=== PATIENT | male | born 1945 | race Asian ===

== ENCOUNTER 2016-10-14 11:25 | Day surgery (SDC) | payer BC ==
[~2016-10-14 11:25] MED LIST: ceFAZolin 2 GM/DEXTROSE 100 ML IV ONE
[2016-10-14] MEDS ORDERED: CEFAZOLIN 2 GM/DEXTROSE/100 ML BAG IV ONE (13:25)
[2016-10-14] MEDS ORDERED: SKIN ADHESIVE (DERMABOND) 1 EACH TP ONE (13:36)
[2016-10-14] MEDS ORDERED: BUPIVACAINE 0.5% 30 ML SDV ONE ×2 (13:37→14:58)
[2016-10-14] MEDS ORDERED: MIDAZOLAM 2 MG/2 ML VIAL ONE (13:48)
[2016-10-14] MEDS ORDERED: fentaNYL 100 MCG/2 ML INJ ONE ×2 (14:06→14:53)
[2016-10-14] MEDS ORDERED: PROPOFOL 200 MG/20 ML VIAL ONE (14:06)
[2016-10-14] MEDS ORDERED: PROPRANOLOL HCL 1 MG/ML VIAL ONE (14:13)
[2016-10-14] MEDS ORDERED: PROPOFOL/EMULSION 500 MG/50 ML BOTTLE IV ONE ×2 (14:14→15:07)
[2016-10-14] MEDS ORDERED: LIDOCAINE 1% 30 ML SDV ONE (14:27)
--- NOTE | 2016-10-14 16:10 | DX ---
Portable Chest 15:52, 2 views History: Port placement, tongue mass Comparison: None Findings: A right chest wall implanted port is present with tip of its catheter in the superior vena cava. There is no pneumothorax. There are no pulmonary nodules or mass lesions. There is no obvious h ilar or mediastinal adenopathy. Impression: Excellent port placement without pneumothorax.
--- NOTE | 2016-10-14 18:12 | DX ---
Intraoperative Fluoroscopy of the Chest Clinical History: 70-year-old male with a history of squamous cell carcinoma, presenting for port bear cement. Findings: Dr. Emilie Lira used 12.5 seconds of fluoroscopy time (exposure dose of 3.07 mGy), and 2 sp ot matrix intraoperative images were acquired identifying a right IJ central venous catheter Metaport which extends to the level of the SVC (although imaging below this level was not provided). Impression: Intraoperative fluoroscopy during an ongoing right IJ central venous catheter Mediport pl acement.
--- NOTE | 2016-10-14 21:53 | GCON ---
[f rep st] CONSULTATION GASTROENTEROLOGY OUTPATIENT CONSULTATION. DATE OF CONSULTATION: 10/14/2016 REFERRING PHYSICIAN: Emilie Lira MD REASON FOR CONSULTATION: Feeding difficulties. HISTORY OF PRESENT ILLNESS: The patient is a 70-year-old male whom I am asked to see in consultation for a chief complaint of feeding difficulties. 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 He is scheduled to begin chemo/radiotherapy 10/20. With the above, he has minimal pain complaints and no reported functional loss with regard to the neck, jaw, etc. It is anticipated with his chemo and radiation therapy that he will have feeding difficulties. PAST MEDICAL HISTORY: 1. As above. 2. Asthma. 3. Osteoarthritis. 4. Hypertension. 5. Otherwise, noncontributory. MEDICATIONS: Outpatient medications include metoprolol and spironolactone. SOCIAL HISTORY: Negative for alcohol abuse. FAMILY HISTORY: Negative for similar swallowing troubles. REVIEW OF SYSTEMS: Positive pertinent review of systems as per my HPI. Otherwise, his review of systems is negative making a total of 10 systems. ALLERGIES: No known drug allergies. PHYSICAL EXAMINATION: Physical examination could not be performed, as the patient is in the operating room, sterile and draped. LABORATORIES: Include a normal CBC on 10/03 as well as a normal basic metabolic panel. ASSESSMENT: Feeding difficulties. It is anticipated that this will occur transiently as a result of chemo and radiation therapy for his base of the tongue cancer. Therefore, placement of a gastrostomy tube is quite reasonable. PLAN: I will proceed with an intraoperative upper endoscopy to assist Dr. Lira in the placement of the above. Thank you for allowing me to help in the care of this patient. /[id number]/MODL MTDD
--- NOTE | 2016-10-14 22:33 | GPN ---
[f rep st] PROCEDURE NOTE DATE OF PROCEDURE: 10/14/2016 PRE-PROCEDURE DIAGNOSIS: Feeding difficulties. POSTPROCEDURE DIAGNOSIS: As below. PREMEDICATION: As per Anesthesia. COMPLICATIONS: None. FINDINGS: The patient was in the prone position, just having finished having a port placed by Dr. Emilie Lira for chemotherapy. The upper endoscope was placed under direct visualization and advanced. The esophagus and duodenum were normal. The stomach was normal, except for some atrophic gastritis. I used the upper endoscope to find an appropriate site for Dr. Lira to use a finer needle, and then insert a gastrostomy tube. IMPRESSION: Upper endoscopy, as above. PLAN: As per Dr. Lira. Thank you for allowing me to help in the care of this patient. /[id number]/MODL MTDD
--- NOTE | 2016-10-15 06:54 | GOP ---
[f rep st] OPERATIVE REPORT DATE OF OPERATION: 10/14/2016 SURGEON: Emilie Lira MD NEUROSURGEON: Emilie Lira MD. ANESTHESIOLOGIST: Zhao Holman MD PREOPERATIVE DIAGNOSIS: Base of tongue cancer. POSTOPERATIVE DIAGNOSIS: Base of tongue cancer. PROCEDURE PERFORMED: Right ultrasound-guided PowerPort placement. FINDINGS: Tip in the SVC. SPECIMENS: None. ESTIMATED BLOOD LOSS: 10 cc. INDICATIONS: The patient is a 70-year-old man who was diagnosed with base of tongue cancer. He requ ires a port for chemotherapy. DESCRIPTION OF PROCEDURE: The patient was brought into the operating room, placed supine on the tabl e, and general anesthesia was administered. His bilateral neck and chest were prepped and draped in the usual sterile fashion. I infiltrated all sites with 0.5% Marcaine prior to making incisions. I tried to access the left subclavian vein two times without return of blood flow. I then turned my at tention to the left neck. I performed ultrasound guidance and saw the internal jugular vein. I acce ssed this with a needle with dark return of blood flow; however, I could not get the wire to thread. I removed the needle. I re-ultrasounded his neck and examined the area. The carotid artery was vis ible. The jugular vein appeared to be between several large lymph nodes and it was difficult to acce ss. I then made the decision to perform an ultrasound of the right side. On the right side, the jug ular vein was isolated and fully compressible. I accessed this easily on the first attempt with dark return of blood flow and the wire threaded easily. I removed the needle. I created a pocket to acc ommodate the port in the right chest. I tunneled this up to the insertion site. Under fluoroscopy, I measured the catheter and cut it to size. Using the Seldinger technique, I placed a dilator and sh eath over the wire. I removed the dilator and the wire. I threaded the catheter through the sheath and peeled away the sheath. Placement was confirmed with fluoroscopy. I performed slight manipulati on of the neck in order to achieve a gentle curve of the catheter. The port withdrew blood easily an d was flushed with heparin. The pocket was closed with 3-0 Vicryl followed by 4-0 Monocryl. Dermabo nd applied. /[id number]/MODL
--- NOTE | 2016-10-15 07:09 | GOP ---
[f rep st] OPERATIVE REPORT DATE OF OPERATION: 10/14/2016 SURGEON: Emilie Lira MD ANESTHESIA: Monitored anesthesia care with IV sedation. ANESTHESIOLOGIST: Dr. Zhao Holman. PREOPERATIVE DIAGNOSIS: Base of tongue cancer. POSTOPERATIVE DIAGNOSIS: Base of tongue cancer. PROCEDURE PERFORMED: Percutaneous gastrostomy tube placement. FINDINGS: 20-Belizean PEG tube with bumper at skin at 3 cm. DESCRIPTION OF PROCEDURE: The patient was already in the operating room. I prepped his abdomen. I asked my colleague Arpan Jackson to perform the EGD portion. Please see his operative note for details on the EGD. Once the stomach was insufflated I was able to select a portion of the stomach where the gastrostomy tube would be located. I infiltrated the area with lidocaine. I used the finder needle and could see an indentation on the stomach. I then used the needle to access the stomach percutaneously. I threaded the wire which was then grasped by Dr. Jackson. The PEG tube was placed around the wire. I made a small mary ann in the skin and pulled the PEG tube out through the skin. The adapters were placed. It measured 2.5 cm at the skin. The stomach was desufflated. He tolerated the procedure well. /[id number]/MODL MTDD
== END 2016-10-14 16:55 | disposition home or self-care (01) ==
LOC: FSGY 11:25
PROVIDERS: ATTEND Surgery
PROC: 0JH60WZ Insertion of Totally Implantable Vascular Access Device into Chest Subcutaneous Tissue and Fascia, Open Approach (ICD-10-PCS; principal; 2016-10-14 13:00)
PROC: 0DH63UZ Insertion of Feeding Device into Stomach, Percutaneous Approach (ICD-10-PCS; principal; 2016-10-14 13:00)
PROC: 02HV33Z Insertion of Infusion Device into Superior Vena Cava, Percutaneous Approach (ICD-10-PCS; principal; 2016-10-14 13:00)
DX: C10.9 Malignant neoplasm of oropharynx, unspecified (principal); R63.3 Feeding difficulties; I25.10 Atherosclerotic heart disease of native coronary artery without angina pectoris; I10 Essential (primary) hypertension; I25.5 Ischemic cardiomyopathy; J45.909 Unspecified asthma, uncomplicated
CPT/HCPCS: 36561; 49440; 71010; 76001; C1769; C1788; J0690; J1800; J2250; J2704; J3010

== ENCOUNTER → 2016-12-08 | Day surgery (SDC) | payer BC, OTHER ==
[~2016-12-08] MED LIST changes: +IOPAMIDOL (ISOVUE-300) 100 ML BTL IV ONE; -ceFAZolin 2 GM/DEXTROSE 100 ML IV ONE
== END | disposition home or self-care (01) ==
LOC: FIMAGING 11:34
PROVIDERS: ATTEND Internal Medicine Hematology & Oncology
PROC: BD12ZZZ Fluoroscopy of Stomach (ICD-10-PCS; principal; 2016-12-08)
DX: Z43.1 Encounter for attention to gastrostomy (principal)
CPT/HCPCS: 49452; C1769; Q9967

== ENCOUNTER 2016-12-09 11:49 | Day surgery (SDC) | payer BC, OTHER ==
[2016-12-09] MEDS ORDERED: NS 1,000 ML IV SCH (14:30)
[2016-12-09] MEDS ORDERED: LIDOCAINE 2% JELLY 20 ML (UROJECT) ONE (14:52)
[2016-12-09] MEDS ORDERED: MIDAZOLAM 2 MG/2 ML VIAL ONE (14:55)
[2016-12-09] MEDS ORDERED: fentaNYL 100 MCG/2 ML INJ ONE (14:56)
[2016-12-09] MEDS ORDERED: ONDANSETRON 4 MG/2 ML VIAL IVP PRN (15:55)
[2016-12-09] MEDS ORDERED: LIDOCAINE 1% 30 ML SDV ONE (16:03)
[2016-12-09] MEDS ORDERED: IOPAMIDOL (ISOVUE-300) 100 ML BTL IV ONE (16:04)
== END 2016-12-09 16:45 | disposition home or self-care (01) ==
LOC: FIMAGING 11:49
PROVIDERS: ATTEND Radiology Diagnostic Radiology
PROC: 0DW03UZ Revision of Feeding Device in Upper Intestinal Tract, Percutaneous Approach (ICD-10-PCS; principal; 2016-12-09 15:30)
DX: Z43.1 Encounter for attention to gastrostomy (principal); C14.0 Malignant neoplasm of pharynx, unspecified
CPT/HCPCS: J2250; J3010; Q9967

== ENCOUNTER 2016-12-10 08:57 | Observation (INO) | payer BC, OTHER ==
--- NOTE | 2016-12-10 09:03 | EDPHY ---
HPI/HX/ROS/PE/MDM Narrative: CHIEF COMPLAINT: PEG tube displaced HPI: This patient is a 70 year old man, with a history of tongue cancer and PEG tube placement, presenting with displacement of his PEG tube. He had a new PEG tube placed yesterday. He states it fell out during the night and he tried to replaced the tube, however it is not functioning today. He denies abdominal pain or fever. He has no other complaints. REVIEW OF SYSTEMS: Aside from elements discussed in the HPI, a comprehensive 10-point review of systems was reviewed and is negative. PMH: Tongue cancer with radiation treatment SOCIAL HISTORY: Followed by Dr. Jackson and Dr. Lira PHYSICAL EXAM: General:Patient is alert, in no acute distress. ENT:Eyes are normal to inspection. ENT inspection normal. Neck: Scarring from radiation noted. Diffuse swelling. Respiratory:No respiratory distress. Breath sounds normal bilaterally. Cardiovascular: Regular rate and rhythm. Strong peripheral pulses. Normal cap refill. Abdomen:The abdomen is nontender to palpation. PEG tube has been replaced in site but appears abormal. There are no peritoneal signs. There are normal bowel sounds. Back: Normal to inspection. No tenderness to palpation. Skin: Normal color. No rash. Warm and dry. Extremities: Normal appearance. Full range of motion. Neuro: Oriented x3. Normal motor function. Normal sensory function. ED Course: [address] Griffin, interventional radiology, about replacing the PEG tube. She tells me that the patient has complicated anatomy and would be best served by surgery for replacement of the PEG tube. Dr. Lira paged. [address] Lira. She requests imaging study and will review the results. Per Krystian, G-tube fluoroscopy shows the G-tube is not in place. Dr. Lira informed. 1120 Dr. Lira evaluated the patient. She will replace the G-tube endoscopically /in the OR. She requests hospitalist admission. 1145 I consulted with the hospitalist service. Dr. Fofana accepts admission. IMAGING Gastrostomy tube check under fluoroscopic guidance Impression: Gastrostomy tube only 2 cm into the patient with contrast not entering the abdomen or peritoneal cavity. Recommend repositioning gastrostomy tube. General Time Seen by Provider: 12/10/16 09:03 Initial Vital Signs: Initial Vital Signs Temperature (C) 36.7 C 12/10/16 09:00 Heart Rate 96 12/10/16 09:00 Respiratory Rate 18 12/10/16 09:00 Blood Pressure 113/61 12/10/16 09:00 O2 Sat (%) 97 12/10/16 09:00 O2 Delivery Mode Room Air Allergies/Adverse Reactions: No Known Allergies Allergy (Verified 12/10/16 08:59) Home Medications: Medication Instructions Recorded Metoprolol Tartrate [Lopressor 25 25 mg PO BID 10/13/16 mg (*)] Spironolactone [Aldactone 25 MG 25 mg PO DAILY 10/13/16 (*)] Atorvastatin Calcium [Lipitor 40 40 mg PO DAILY 12/09/16 mg (*)] Losartan Potassium [Cozaar 25 mg 25 mg PO DAILY 12/09/16 (*)] Sennosides/Docusate Sodium 1 - 2 each PO BID PRN 12/10/16 [Senna-Docusate Sodium Tablet] Departure - Departure Disposition: [facility] Inpatient Acute Clinical Impression: PEG tube malfunction Condition: Fair Report Scribed for: Frankie Gerardo Report Scribed by: Emilie Hawthorne Date of Report: 12/10/16 Time of Report: 09:03 Physician Review and Approval Statement: Portions of this note were transcribed by an ED scribe. I personally performed the history, physical exam, and medical decision making; and confirm the accuracy of the information in the transcribed note.
--- NOTE | 2016-12-10 12:10 | GCON ---
[f rep st] CONSULTATION DATE OF CONSULTATION: 12/10/2016 REFERRING PHYSICIAN: Frankie Gerardo MD REQUESTING PHYSICIAN: Dr. Frankie Gerardo. CHIEF COMPLAINT: Dislodged feeding tube. HISTORY OF PRESENT ILLNESS: The patient is a 70-year-old man whom I first met at the end of September . He was diagnosed with base of tongue cancer. It was locally advanced. He is currently being jose ated with chemotherapy and radiation. I placed a port, and Dr. Jackson and I also placed a percutaneou s gastrostomy tube on October 14, 2016. He was doing well until the , when it fell out. Dr. Kash gruber attempted to re-access it with a wire and was unsuccessful. He was then brought back on December 09, and a new gastrostomy tube was placed with a new hole in the stomach, but a separate exit site. He presented to the ER today because the tube had fallen out again. Fluoroscopy confirmed that it was not within the tract. When I examined him, the balloon was completely deflated and only in the sub cutaneous tissue. PAST MEDICAL HISTORY: Base of tongue cancer, coronary artery disease, hypertension, ischemic cardio myopathy. PAST SURGICAL HISTORY: Cholecystectomy, coronary stent port and G-tube. MEDICATIONS: Medications have not been reconciled for this admission. ALLERGIES: No known drug allergies. FAMILY HISTORY: Significant for a congenital heart defect in the father and hypercholesterolemia in his mother. SOCIAL HISTORY: He has never used tobacco. He is a college graduate. He, previous to this, was cy cling daily. He denies tobacco use. PHYSICAL EXAMINATION: GENERAL: Pleasant, well-nourished, well-groomed man. HEENT: Normocephalic. No gross hearing deficits. He has a lot of phlegm. Pupils are equal and round, no scleral icteru s. NECK: He has hollis from radiation. LUNGS: Clear to auscultation bilaterally. No increased wo rk of breathing. CARDIAC: Regular rate. No peripheral edema. ABDOMEN: I examined, and the G-tub e was in the subcutaneous tissues. He is soft. There are no signs of peritonitis. SKIN: Warm and dry. MUSCULOSKELETAL: Normal gait. Normal nails. PSYCH: Mood and affect normal. IMPRESSION AND PLAN: The patient is a 70-year-old with base of tongue cancer. His PEG tube has fal adam out again. I am hopeful that there is no peritonitis as the same tract was used in the stomach as adhered to the abdominal wall. He does not appear to be toxic. I will attempt to replace this w ith Dr. Toscano. I am unsure if the scope will be able to pass beyond the base of tongue cancer, bu t I am hopeful it will. Also, he understands that since the gastrostomy tube fell out recently, if rita martinez becomes sick, he will need an exploratory laparotomy. Finally, he understands that if we are unab le to place this percutaneously, I will place it open. The risks and benefits, including, but not l imited to, stroke, heart attack, , blood clots, infection, bleeding, damage to surrounding stru ctures, including the bowel or this falling out again are all possibilities. I appreciate the hospi talist admitting him. He is currently dehydrated. /[id number]/MODL
[2016-12-10 12:24] LABS: % IMMATURE GRANULYOCYTES 1.5 % (0.0-1.1); ABSOLUTE IMMATURE GRANULOCYTES 0.03 10^3/uL (0.00-0.10); ABSOLUTE NRBC COUNT 0.03 10^3/uL (0-0.01); ADD DIFF? NO; ADD MORPH? YES; ADD SCAN? YES; ATYPICAL LYMPHOCYTE FLAG 40 (0-99); FRAGMENT RBC FLAG 0 (0-99); HEMATOCRIT 22.6 % (40.0-51.0); HEMOGLOBIN 7.7 g/dL (13.7-17.5); LIPEMIA HEMOLYSIS FLAG 90 (0-99); MEAN CELL HEMOGLOBIN 29.2 pg (27.9-34.1); MEAN CELL HEMOGLOBIN CONCENTR. 34.1 g/dL (32.4-36.7); MEAN CELL VOLUME 85.6 fL (81.5-99.8); MEAN PLATELET VOLUME 9.6 fL (8.7-11.7); PLATELET CLUMPS FLAG 40 (0-99); PLATELET COUNT 105 10^3/uL (150-400); RED BLOOD CELL COUNT 2.64 10^6/uL (4.40-6.38)
[2016-12-10 12:26] LABS: LEFT SHIFT FLG 110 (0-99); NRBC-AUTO% 1.5 % (0.0-0.2)
[2016-12-10 12:30] LABS: INR 1.35 (0.83-1.16); PROTIME(PATIENT) 16.7 SEC (12.0-15.0)
[2016-12-10 12:31] LABS: APTT 65.2 SEC (23.0-38.0)
[2016-12-10] MEDS ORDERED: ONDANSETRON 4 MG/2 ML VIAL IVP PRN (12:34)
[2016-12-10] MEDS ORDERED: ACETAMINOPHEN 325 MG TAB PO PRN (12:34)
[2016-12-10] MEDS ORDERED: ONDANSETRON DISINTEGRATING 4 MG TAB PO PRN (12:34)
[2016-12-10] MEDS ORDERED: fentaNYL 100 MCG/2 ML INJ ONE ×2 (12:36→14:17)
[2016-12-10] MEDS ORDERED: MIDAZOLAM 2 MG/2 ML VIAL ONE (12:43)
[2016-12-10 12:54] LABS: ANION GAP 15 mEq/L (8-16); CALCIUM 8.7 mg/dL (8.5-10.4); CARBON DIOXIDE 24 mEq/l (22-31); CHLORIDE 104 mEq/L (97-110); CREATININE 0.9 mg/dL (0.7-1.3); GLOMERULAR FILTRATION RATE > 60; GLUCOSE 117 mg/dL (70-100); POTASSIUM 3.4 mEq/L (3.5-5.2); SODIUM 143 mEq/L (134-144)
[2016-12-10 12:57] LABS: ELLIPTOCYTES 1+; PLATELET ESTIMATE DECREASED (ADEQ); POLYCHROMASIA 1+
[2016-12-10 12:58] LABS: SCAN NEGATIVE
[2016-12-10] MEDS ORDERED: PROPOFOL/EMULSION 500 MG/50 ML BOTTLE IV ONE (12:59)
--- NOTE | 2016-12-10 13:31 | GOP ---
[f rep st] OPERATIVE REPORT DATE OF OPERATION: 12/10/2016 SURGEON: Emilie Lira MD ANESTHESIA: IV general. ANESTHESIOLOGIST: Dr. Any Barreto. PREOPERATIVE DIAGNOSIS: Base of tongue cancer with dysphagia and dislodged feeding tube. POSTOPERATIVE DIAGNOSIS: Base of tongue cancer with dysphagia and dislodged feeding tube. PROCEDURE PERFORMED: Percutaneous gastrostomy tube placement. FINDINGS: Evidence of previous gastrostomy tube in the stomach. SPECIMENS: None. ESTIMATED BLOOD LOSS: 1 cc. INDICATIONS: The patient is a 70-year-old man who has base of tongue cancer. I placed a port and a percutaneous gastrostomy tube in October. On December 08, this tube became dislodged. He was sent t o Radiology, and it was unable to be re-placed. It was then replaced on December 09. He presented to the ER today because it was not functioning well. When I examined him, the balloon was completely d eflated and in the subcutaneous tissues. I was unable to palpate the track into the stomach. He wa s nontoxic, and there were no signs of gastric contents leaking into the abdominal cavity. DESCRIPTION OF PROCEDURE: The patient was brought into the endo suite, and IV general was performed by Dr. Sajan Barreto. His abdomen was prepped with Betadine. Please see Dr. Toscano's note fo r all the details of the EGD. After the stomach was insufflated, we were able to see the area of th e previous gastrostomy tube. I used a finder needle and was able to go through the center portion o f this. A wire was passed through this, which was retrieved with a snare through the scope. The PE G tube was then placed and brought up to 4 cm at the skin, 5 cm past the bumper. The stomach was re -insufflated and placement was confirmed. Due to this falling out numerous times, I sutured the bum per into place. The connectors were placed. He may use this tomorrow. He tolerated the procedure well. CO-SURGEON: Dr. Eduard Toscano who was needed for his technical expertise and timely completion of the case. /[id number]/MODL
--- NOTE | 2016-12-10 13:55 | GPN ---
[f rep st] PROCEDURE NOTE DATE OF PROCEDURE: 12/10/2016 PREPROCEDURE DIAGNOSES: Dislodged feeding tube. POSTPROCEDURE DIAGNOSIS: Replace the feeding tube. PROCEDURE: Upper endoscopy. MEDICATIONS: Monitored anesthesia care. INDICATION: The patient is a 70-year-old gentleman with a history of tongue cancer, who previously had a feeding tube placed which has been dislodged. He is a patient of Dr. Emilie Lira. Dr. Emilie Lira is going to do the placement of the feeding tube portion of the procedure while I am doing the upper endoscopy portion. The risks and benefits of the procedure were discussed with the patient and consent obtained. The risks include, but not limited to, bleeding, perforation , risks associated with sedation. The patient is ASA class 3. PROCEDURE IN DETAIL: The tumor at the base of the tongue was seen upon insertion of the scope. The upper endoscope was inserted into the esophagus, into the stomach and into the second portion of the duodenum. The esophagus appears normal. The stomach showed an ulcer at the location of the prior gastrostomy tube site placement. The remainder of the stomach was normal. The duodenum and second portion were normal. See Dr. Lira's separate report for details regarding the gastrostomy tube insertion. I performed the upper endoscopy portion. I grabbed the wire with the endosnare and removed both the wire and scope from the patient. The gastrostomy tube was then pulled into the stomach and through the previous site. The scope was reinserted to demonstrate proper positioning of the gastrostomy tube. The bumper was set at 5 cm. IMPRESSION: Upper endoscopy performed in conjunction with percutaneous endoscopic gastrostomy tube placement by Dr. Lira. The upper endoscopy portion showed prior gastrostomy site with ulceration and demonstrated proper positioning of the reinsertion of the gastrostomy tube. RECOMMENDATIONS: See Dr. Lria's orders and notes for recommendations regarding PEG tube use. Thank you for allowing me to participate in the care of this patient. Please do not hesitate to call with questions. /[id number]/MODL MTDD
[2016-12-10] MEDS ORDERED: FAMOTIDINE 20 MG/NACL/50 ML BAG IV ONE (14:16)
[2016-12-10] MEDS ORDERED: SCOPOLAMINE HYDROBROMIDE 1.5 MG PATCH TD SCH (14:30)
[2016-12-10] MEDS ORDERED: LIDOCAINE 2% VISCOUS 15 ML UDCUP PO PRN (14:31)
--- NOTE | 2016-12-10 15:26 | GHP ---
[f rep st] HISTORY AND PHYSICAL DATE OF ADMISSION: 12/10/2016 CHIEF COMPLAINT: Dislodged feeding tube. 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 He initially had a gastrostomy tube placed on October 14, 2016. Was doing well until the when it fell out. Dr. Ferrari attempted to re-access it with a wire and was unsuccessful. Thus, he was brought back on the , and a new tube was placed with a new hole in the stomach but in a separate exit site. He then re- presented to the emergency room today because the tube fell out again, and fluoroscopy confirmed that it was not within the tract. The patient reports excess secretions from not being able to swallow. He does have intermittent streaks of blood but not a significant amount. Denies hemoptysis, hematochezia or melena. Denies any recent fevers, chills, or sweats. Had diarrhea a week ago, which to be typical after receiving chemo. He currently complains of 8/10 sharp pain in his throat that is like a burning, sharp pain. He normally takes oxycodone at home but has not been able to given inability to swallow. PAST MEDICAL HISTORY: 1. Squamous cell tongue cancer. Just completing chemotherapy and radiation. He had a PET scan done 09/30/2016 that demonstrated local advancement into the palate with left cervical lymph nodes but no distant metastatic disease. 2. Hypertension. 3. Hyperlipidemia. PAST SURGICAL HISTORY: 1. G-tube. 2. Gallbladder. 3. Stents. 4. Ports. ALLERGIES: NKDA SOCIAL HISTORY: He lives in [place] with his , 22 years. Has 3 kids. No illicits, alcohol or tobacco. FAMILY HISTORY: No cancers. No CVA. No CAD. HOME MEDICATIONS: He has not been taking any given inability to swallow. Senna , metoprolol 25 mg b.i.d., losartan 25 mg daily, atorvastatin 40 mg daily, spironolactone 25 mg daily. PHYSICAL EXAM: VITAL SIGNS: Temperature afebrile, blood pressure 123/71, heart rate 80, respiratory 22, 100% on 2 L. GENERAL: Pleasant, no acute distress, mildly somnolent secondary to anesthesia. HEENT: PERRLA. Significant amount of phlegm. He has hollis and sloughing over the left neck. HEART: Regular rate and rhythm. No murmurs, gallops, or rubs. LUNGS: Clear to auscultation bilaterally. ABDOMEN: Soft, nontender, nondistended. G-tube in place. Positive bowel sounds. MUSCULOSKELETAL: 5/5 upper and lower extremity strength. NEURO: 2 through 12 intact. PSYCH: Alert and oriented x3. Very pleasant. LABS: Sodium of 143, potassium 3.4, chloride 104, carbon dioxide 24, creatinine 0.9, BUN 42, glucose 117. INR 1.3. PT 16.7. WBC 2.0, hemoglobin 7.7, hematocrit 22, platelets 105. Baseline H and H are 11 and 33. IMAGING: Gastrostomy tube check under fluoroscopic guidance. Impression: Tube only 2 cm in the patient with contrast not entering into the abdomen. ASSESSMENT AND PLAN: 1. Dislodged G-tube. Appreciate Dr. Lira's and Dr. Toscano's assistance with replacing tube. It was performed under endoscopy with percutaneous endoscopic gastrostomy tube placement. This was performed without complications. Per Dr. Lira, do not use tube this evening. 2. Throat pain: secondary to radiation, cancer. Patient taking oxycodone at home but unable to swallow pills at this point. Will give p.r.n. morphine and viscous lidocaine. 3. Normocytic anemia. Hemoglobin and hematocrit down from 11 and 33 to 7.7 and 22. Patient denies significant bleeding. Has some streaked mucus but not a significant amount. Will repeat this in the morning. Patient is typed and screened. 4. Excess phlegm. Will trial a scopolamine patch. 5. Squamous cell tongue cancer. Just completed chemotherapy and XRT. Followed by Dr. Alvarez. 6. Diet: N.p.o. this evening. Will continue IV fluids. 7. DVT prophylaxis. SCDs given anemia. DISPOSITION: Patient warrants observation admission given dislodged G-tube, anemia warranting IV opioids and fluids. /[id number]/MODL MTDD
[2016-12-10] MEDS: NS 1,000 ML IV SCH (16:00)
[2016-12-10] MEDS: POTASSIUM Cl (KCl) 100 ML IV SCH ×3 (16:01→18:31)
[2016-12-10] MEDS ORDERED: METOPROLOL TARTRATE 25 MG TAB PO SCH (21:00)
[2016-12-11] MEDS: NS 1,000 ML IV SCH (02:45)
[2016-12-11 04:38] LABS: % IMMATURE GRANULYOCYTES 1.1 % (0.0-1.1); ABSOLUTE IMMATURE GRANULOCYTES 0.02 10^3/uL (0.00-0.10); ABSOLUTE NRBC COUNT 0.02 10^3/uL (0-0.01); ADD DIFF? NO; ADD MORPH? YES; ADD SCAN? YES; ATYPICAL LYMPHOCYTE FLAG 40 (0-99); FRAGMENT RBC FLAG 0 (0-99); HEMATOCRIT 20.9 % (40.0-51.0); LIPEMIA HEMOLYSIS FLAG 80 (0-99); MEAN CELL HEMOGLOBIN 29.1 pg (27.9-34.1); MEAN CELL HEMOGLOBIN CONCENTR. 32.5 g/dL (32.4-36.7); MEAN CELL VOLUME 89.3 fL (81.5-99.8); MEAN PLATELET VOLUME 9.4 fL (8.7-11.7); PLATELET CLUMPS FLAG 0 (0-99); PLATELET COUNT 84 10^3/uL (150-400); RED BLOOD CELL COUNT 2.34 10^6/uL (4.40-6.38); RED CELL DISTRIBUTION WIDTH 14.2 % (11.5-15.2)
[2016-12-11 04:46] LABS: HEMOGLOBIN 6.8 g/dL (13.7-17.5); LEFT SHIFT FLG 110 (0-99); NRBC-AUTO% 1.1 % (0.0-0.2)
[2016-12-11 04:56] LABS: ANION GAP 10 mEq/L (8-16); CALCIUM 7.9 mg/dL (8.5-10.4); CARBON DIOXIDE 26 mEq/l (22-31); CHLORIDE 108 mEq/L (97-110); CREATININE 0.8 mg/dL (0.7-1.3); GLOMERULAR FILTRATION RATE > 60; GLUCOSE 84 mg/dL (70-100); POTASSIUM 3.7 mEq/L (3.5-5.2); SODIUM 144 mEq/L (134-144)
[2016-12-11 05:30] LABS: SCAN NEGATIVE
[2016-12-11 05:32] LABS: HYPOCHROMIA 1+; POLYCHROMASIA 1+
[2016-12-11 05:33] LABS: PLATELET ESTIMATE DECREASED (ADEQ)
[2016-12-11 08:04] VITALS: RESP 16; O2SAT 97
[2016-12-11] MEDS ORDERED: ATORVASTATIN CALCIUM 40 MG TAB PO SCH (09:00)
[2016-12-11] MEDS ORDERED: METOPROLOL TARTRATE 25 MG TAB TUBE SCH (09:00)
--- NOTE | 2016-12-11 09:52 | SOAPPROG ---
SOAP Progress Note Assessment/Plan: Assessment: Site cdi 4 cm at the skin and 5 cm at the bumper May use PEG tube F/U with Dr. Lira in 2 weeks Call if other questions or concerns. S: Asking if he will go home today O: Site cdi Plan: 12/11/16 09:51 Objective: Vital Signs Temp Pulse Resp BP Pulse Ox 36.7 C 83 16 117/61 97 12/11/16 08:00 12/11/16 08:00 12/11/16 08:00 12/11/16 08:00 12/11/16 08:00 Laboratory Results 12/11/16 04:20 12/11/16 04:20 12/10/16 12/11/16 12/12/16 05:59 05:59 05:59 Intake Total 650 1783 Output Total 475 400 Balance 175 1383 PT 16.7 SEC (12.0-15.0) H 12/10/16 12:08 INR 1.35 (0.83-1.16) H 12/10/16 12:08 ICD10 Worksheet Patient Problems: Problems Problem Status Onset PEG tube malfunction Acute
--- NOTE | 2016-12-11 11:27 | WOCRNPDOC ---
WOCRN Advanced Assessment Note - Skin Integrity Problem, Advanced Assess Left Neck Dermatitis Dressing Type: Open to Air (Silvadene cream visible) Exudate Amount: None Exudate Characteristic(s): None Erica Wound Swelling: Mild Wound Bed Color: Red Site Measurement - Head-to-Toe Length X Width X Depth (cm): 6cmx11.5cmx0.1cm Skin Integrity Problem Comment: Received consult request for radiation dermatitits on patient's L neck. Upon assessment, there is an area of desquamtion along his left neck, w/ linear partial-thickness tissue loss observed. Minimal swelling, and patient denies pain/discomfort. He has been applying Silvadene cream per his physician, and this seems appropriate. No need for wound care the follow ongoing, and information technology security analyst Thad advised to reconsult PRN.
[2016-12-11 11:48] VITALS: BP 132/67; PULSE 80; TEMP 99
[2016-12-11] MEDS ORDERED: ONDANSETRON DISINTEGRATING 4 MG TAB TUBE PRN (13:56)
--- NOTE | 2016-12-11 14:47 | HOSPPROG ---
Hospitalist Progress Note Assessment/Plan: #Dislodged G-tube: replaced. Ok to use #Normocytic anemia: chemo-related. No overt bleeding. Transfuse 2 units #Mild neutropenia: improved from prior lab. FU with Dr. Alvarez #Excess secretions: scop patch helped. #Disp: DC today Subjective: less secretions. pain better today. Objective: Vital Signs Temp Pulse Resp BP Pulse Ox 37.2 C 80 16 132/67 H 97 12/11/16 11:48 12/11/16 11:48 12/11/16 11:48 12/11/16 11:48 12/11/16 11:48 Laboratory Results 12/11/16 04:20 12/11/16 04:20 12/10/16 12/11/16 12/12/16 05:59 05:59 05:59 Intake Total 650 1783 Output Total 475 400 Balance 175 1383 PT 16.7 SEC (12.0-15.0) H 12/10/16 12:08 INR 1.35 (0.83-1.16) H 12/10/16 12:08 - Physical Exam Constitutional: no apparent distress Eyes: PERRL Ears, Nose, Mouth, Throat: other (excess oral secretions) Cardiovascular: regular rate and rhythym Respiratory: no respiratory distress Gastrointestinal: normoactive bowel sounds Genitourinary: no bladder fullness Skin: warm, other (left neck radiation dermatitis, skin sloughing ) Neurologic: AAOx3 Psychiatric: interacting appropriately ICD10 Worksheet Patient Problems: Problems Problem Status Onset PEG tube malfunction Acute
--- NOTE | 2016-12-11 15:16 | PDIAF ---
- Diagnosis Code Status: Full Code - Medication Management Discharge Medications: Medications to Continue on Transfer Metoprolol Tartrate [Lopressor 25 mg (*)] 25 mg PO BID 10/13/16 [Last Taken ] Spironolactone [Aldactone 25 MG (*)] 25 mg PO DAILY 10/13/16 [Last Taken ] Atorvastatin Calcium [Lipitor 40 mg (*)] 40 mg PO DAILY 12/09/16 [Last Taken ] Losartan Potassium [Cozaar 25 mg (*)] 25 mg PO DAILY 12/09/16 [Last Taken ] Sennosides/Docusate Sodium [Senna-Docusate Sodium Tablet] 1 - 2 each PO BID PRN 12/10/16 [Last Taken 12/06/16] Scopolamine Hydrobromide [Transderm-Scop] 1.5 mg TD Q72H #10 patch 12/11/16 [ Last Taken Unknown] Discharge Medications: Refer to the Discharge Home Medication list for PRN reason. - Orders Services needed: Home Care, Registered Nurse Home Care Face to Face: I certify that this patient was under my care and that I had the required [id number] encounter meeting the encounter requirements on the discharge day. My findings support the fact that the patient is homebound as defined in CMS Chapter 7 Medicare Benefits Manual 30.1.1, The condition of the patient is such that there exists a normal inability to leave home and consequently, leaving home would require a considerable and taxing effort. Diet Recommendation: other (tube feeds) - Follow Up Care Current Providers and Referrals: Leslye Wright MD [Primary Care Provider] - As per Instructions Emilie Lira MD [Medical Doctor] - follow up in 2 weeks
[2016-12-11 15:30] LABS: HEMATOCRIT 24.2 % (40.0-51.0); HEMOGLOBIN 8.1 g/dL (13.7-17.5); MEAN CELL HEMOGLOBIN 28.9 pg (27.9-34.1); MEAN CELL HEMOGLOBIN CONCENTR. 33.5 g/dL (32.4-36.7); MEAN CELL VOLUME 86.4 fL (81.5-99.8); RED BLOOD CELL COUNT 2.8 10^6/uL (4.40-6.38); RED CELL DISTRIBUTION WIDTH 15.6 % (11.5-15.2)
--- NOTE | 2016-12-11 22:54 | GDS ---
[f rep st] DISCHARGE SUMMARY DISCHARGE DIAGNOSES: 1. Dislodged gastrostomy tube. 2. Throat pain. 3. Normocytic anemia. 4. Excessive oral secretions. 5. Squamous cell tongue carcinoma. 6. Mild neutropenia. PROCEDURES: 1. Replacement of gastrostomy tube. 2. Blood transfusion x2 units. 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 He initially had a gastrostomy tube placed on October 14, 2016, and was doing well until December 08 [address] it fell out. Dr. Griffin attempted re-access with a wire and was unsuccessful. New one was unsuccessful. He was thus brought back on the , and a new tube was placed with a new hole in the stomach, but this fell out. HOSPITAL COURSE BY PROBLEM: 1. Dislodged tube. Patient's tube was replaced under endoscopy with percutaneous gastrostomy placement. There were no complications and it was okay to use. 2. Throat pain. This is secondary to radiation and cancer. The patient was unable to take oxycodone at home due to pain, but improved. Continue home oxycodone. 3. Normocytic anemia. H and H at the time of admission was 7 and 22. This morning, hemoglobin was 6. There was no overt bleeding. Suspect secondary to chemotherapy. Patient was transfused 2 units of blood. 4. New mild neutropenia: Per review of prior labs per Dr. Sweeney, this is mildly improved. He should follow up with his primary oncologist. 5. Excess oral secretions: This was problematic for patient. It is mildly improved with scopolamine patch, thus will continue. Suctioning equipment to be set up at home. 6. Squamous cell carcinoma. Just completed chemotherapy and XRT. Follow up with Dr. Alvarez. 7. Right neck radiation dermatitis. Continue Silvadene cream as he has been doing. DISPOSITION: Patient is stable for discharge. FOLLOWUP: 1. Dr. Lira in 2 weeks. 2. His primary oncologist, Dr. Alvarez, as previously scheduled. /[id number]/MODL Time spent on DC: 45 min counseling pt on home care, FU and coordinating home care services. NIECY
== END 2016-12-11 16:39 | disposition home or self-care (01) ==
LOC: F3E 14:32
PROVIDERS: ADMIT Internal Medicine; ATTEND Internal Medicine
PROC: 0DH63UZ Insertion of Feeding Device into Stomach, Percutaneous Approach (ICD-10-PCS; principal; 2016-12-10 13:11)
DX: K94.23 Gastrostomy malfunction (principal); Z85.810 Personal history of malignant neoplasm of tongue; Z92.3 Personal history of irradiation; D64.81 Anemia due to antineoplastic chemotherapy; I10 Essential (primary) hypertension; E78.5 Hyperlipidemia, unspecified
CPT/HCPCS: 49450; 76000; 99285; G0378; P9016; P9040; J2250; J2704; J3010

== ENCOUNTER 2016-12-18 17:20 | Inpatient (IN) | payer BC, OTHER ==
--- NOTE | 2016-12-18 18:00 | EDPHY ---
H & P Stated Complaint: nontraumatic l knee pain/fever and tachycardia - Personal History Current Tetanus/Diphtheria Vaccine: Yes - Medical/Surgical History Hx Asthma: No Hx Chronic Respiratory Disease: No Hx Diabetes: No Hx Cardiac Disease: Yes Hx Renal Disease: No Hx Cirrhosis: No Hx Alcoholism: No Hx HIV/AIDS: No Hx Splenectomy or Spleen Trauma: No Other PMH: throat cancer/feeding tube/cardiac stents - Social History Smoking Status: Never smoked Time Seen by Provider: 12/18/16 17:30 HPI/ROS: This is a 70-year-old gentleman presenting to the emergency department complaining of left knee pain. Patient stated it has been going on for about a week has been wearing a knee brace off and on but had increased pain last night with decreasing weight-bearing. Patient states most painful behind the knee and left calf. reports he was here several times last week admitted for feeding tube malfunction which was resolved. Patient reports finished radiation 1 week ago, chemo 2 weeks ago for tongue cancer. Patient reports last meal intake through PEG tube at 1600. REVIEW OF SYSTEMS: Constitutional: Fever no chills, no changes to PEG tube feedings Eyes: No blurred vision ENT: Chronic Tongue swelling due to tongue cancer but no changes Respiratory: No shortness of breath Cardiac: No chest pain Gastrointestinal: No abdominal pain no nausea no vomiting Genitourinary: No urine discomfort Musculoskeletal: Left knee pain left calf pain Skin: No rash Neurological: No headache or dizziness (Katharine Chisholm) - Physical Exam Exam: CONSTITUTIONAL: patient appeared well nourished, non-ill appearing and normally developed. No acute distress. Vital signs as documented. HEENT: Normocephalic atraumatic. PERRLA. EOMI. Oropharynx positive tongue swelling not impeding airway NECK: Supple, without jugular venous distension, tracheal deviation. FROM without pain RESP: Non-labored resp effort, airway patent, CTAB CARDIAC: RRR w/o murmur, tosha. Left implanted port GI: Abd soft NTTP, no mass. Peg tube noted NEURO: AAOx3 CNII-XII intact EXTREMITIES: This left knee popliteal tenderness on palpate left calf tenderness on palpate, faint palpable pedal pulses but pulses are noted using Doppler. Decreased range of motion most likely due to pain. Positive cms intact SKIN: Warm and dry PSYCH: Normal affect, calm, no distress (Katharine Chisholm) Constitutional: Initial Vital Signs Temperature (C) 37.8 C 12/18/16 17:24 Heart Rate 134 H 12/18/16 17:24 Respiratory Rate 28 H 12/18/16 17:24 Blood Pressure 125/64 H 12/18/16 17:24 O2 Sat (%) 95 12/18/16 17:24 O2 Delivery Mode Room Air Allergies/Adverse Reactions: No Known Allergies Allergy (Verified 12/18/16 17:23) Home Medications: Medication Instructions Recorded Metoprolol Tartrate [Lopressor 25 25 mg PO BID 10/13/16 mg (*)] Spironolactone [Aldactone 25 MG 25 mg PO DAILY 10/13/16 (*)] Atorvastatin Calcium [Lipitor 40 40 mg PO DAILY 12/09/16 mg (*)] Medical Decision Making - Diagnostics EKG Interpretation: EKG: Complete interpretation has been separately recorded in the [facility] archive. Summary impression: Sinus rhythm, rate 98 (Omkar Sandoval) Imaging: Imaging Impressions Extremity Venous Study 12/18/16 17:56 Impression: 1. No evidence of deep vein thrombosis in the left lower extremity. 2. Complex Doran's cyst. Results called to Katharine Chisholm at 6:52 PM. Chest X-Ray 12/18/16 18:13 Impression: 1. No pneumonia or pleural effusion. 2. Stable implanted port. 3. Possible left upper quadrant gastrostomy. Procedures: Procedure: Arthrocentesis. Indication: Evaluation for the possibility of septic joint. Risks, benefits, alternatives of the procedure were discussed with the patient and consent obtained. The patient was prepped and draped in the usual sterile fashion over the left joint. Local anesthesia was provided with 1% lidocaine. The joint space was entered with a 18 gauge needle and 5 ml of turbid fluid was obtained. There were no complications. The procedure was performed by myself. (Omkar Sandoval) ED Course/Re-evaluation: Discussed plan of care with patient family: CBC, Chem 7, lactate, blood cultures x2, ultrasound of left lower extremity. After reviewing previous labs studies, labs are much better today than with previous visits. 1854: Spoke with Dr. Hernandez ultrasound negative for any DVTs, positive for unruptured 7 cm doran cyst 1929: Spoke with Dr. Prado with [facility] start with IV Zosyn 2030: Consulted with radha Pritchard, patient admitted to [facility] for sepsis, questionable septic joint. Increase in heart rate 134, fever 100.2 (Katharine Chisholm) Differential Diagnosis: Differential diagnosis considered but not limited to LLE DVT, pneumonia and neutropenia (Katharine Chisholm) Other Provider: Dr. Ashish Nance from the hospitalist service requested that I perform arthrocentesis of the left knee to evaluate for septic arthritis. This was performed by myself under sterile conditions without complication. Fluid has been sent to the lab. The hospitalist service will follow up on the results of the synovial fluid results. (Omkar Sandoval) - Data Points Laboratory Results: Laboratory Results 12/18/16 18:10 12/18/16 18:10 12/18/16 12/18/16 12/18/16 18:10 18:10 18:10 WBC 4.93 10^3/uL 10^3/uL (3.80-9.50) RBC 3.17 10^6/uL L 10^6/uL (4.40-6.38) Hgb 9.0 g/dL L g/dL (13.7-17.5) Hct 26.6 % L % (40.0-51.0) MCV 83.9 fL fL (81.5-99.8) MCH 28.4 pg pg (27.9-34.1) MCHC 33.8 g/dL g/dL (32.4-36.7) RDW 15.5 % H % (11.5-15.2) Plt Count 135 10^3/uL L 10^3/uL (150-400) MPV 9.4 fL fL (8.7-11.7) Neut % (Auto) 74.3 % H % (39.3-74.2) Lymph % (Auto) 15.2 % % (15.0-45.0) [place] % (Auto) 9.5 % % (4.5-13.0) Eos % (Auto) 0.0 % L % (0.6-7.6) Baso % (Auto) 0.2 % L % (0.3-1.7) Nucleat RBC Rel Count 0.4 % H % (0.0-0.2) Absolute Neuts (auto) 3.66 10^3/uL 10^3/uL (1.70-6.50) Absolute Lymphs (auto) 0.75 10^3/uL L 10^3/uL (1.00-3.00) Absolute Monos (auto) 0.47 10^3/uL 10^3/uL (0.30-0.80) Absolute Eos (auto) 0.00 10^3/uL L 10^3/uL (0.03-0.40) Absolute Basos (auto) 0.01 10^3/uL L 10^3/uL (0.02-0.10) Absolute Nucleated RBC 0.02 10^3/uL H 10^3/uL (0-0.01) Immature Gran % 0.8 % % (0.0-1.1) Immature Gran # 0.04 10^3/uL 10^3/uL (0.00-0.10) VBG Lactic Acid 2.1 mmol/L mmol/L (0.7-2.1) Sodium 133 mEq/L L mEq/L (134-144) Potassium 4.4 mEq/L mEq/L (3.5-5.2) Chloride 98 mEq/L mEq/L (97-110) Carbon Dioxide 23 mEq/l mEq/l (22-31) Anion Gap 12 mEq/L mEq/L (8-16) BUN 25 mg/dL H mg/dL (7-23) Creatinine 0.8 mg/dL mg/dL (0.7-1.3) Estimated GFR > 60 Glucose 239 mg/dL H mg/dL (70-100) Calcium 8.4 mg/dL L mg/dL (8.5-10.4) Medications Given: Discontinued Medications Acetaminophen (Tylenol) 1,000 mg PO EDNOW ONE Stop: 12/18/16 19:04 Last Admin: 12/18/16 19:07 Dose: 1,000 mg Piperacillin/Tazobactam/Dextrose (Zosyn 3.375 Gm (Premix)) 50 mls @ 100 mls/hr IV EDNOW ONE PRN Reason: Protocol Stop: 12/18/16 19:56 Last Admin: 12/18/16 20:00 Dose: 50 mls
[2016-12-18 18:21] LABS: % IMMATURE GRANULYOCYTES 0.8 % (0.0-1.1); ABSOLUTE IMMATURE GRANULOCYTES 0.04 10^3/uL (0.00-0.10); ABSOLUTE NRBC COUNT 0.02 10^3/uL (0-0.01); ADD DIFF? NO; ADD MORPH? NO; ADD SCAN? NO; ATYPICAL LYMPHOCYTE FLAG 30 (0-99); FRAGMENT RBC FLAG 0 (0-99); HEMATOCRIT 26.6 % (40.0-51.0); LEFT SHIFT FLG 40 (0-99); LIPEMIA HEMOLYSIS FLAG 90 (0-99); MEAN CELL HEMOGLOBIN 28.4 pg (27.9-34.1); MEAN CELL HEMOGLOBIN CONCENTR. 33.8 g/dL (32.4-36.7); MEAN CELL VOLUME 83.9 fL (81.5-99.8); MEAN PLATELET VOLUME 9.4 fL (8.7-11.7); NRBC-AUTO% 0.4 % (0.0-0.2); PLATELET CLUMPS FLAG 10 (0-99); PLATELET COUNT 135 10^3/uL (150-400); RED BLOOD CELL COUNT 3.17 10^6/uL (4.40-6.38); RED CELL DISTRIBUTION WIDTH 15.5 % (11.5-15.2)
[2016-12-18 18:42] LABS: ANION GAP 12 mEq/L (8-16); CALCIUM 8.4 mg/dL (8.5-10.4); CARBON DIOXIDE 23 mEq/l (22-31); CHLORIDE 98 mEq/L (97-110); CREATININE 0.8 mg/dL (0.7-1.3); GLOMERULAR FILTRATION RATE > 60; GLUCOSE 239 mg/dL (70-100); POTASSIUM 4.4 mEq/L (3.5-5.2); SODIUM 133 mEq/L (134-144)
[2016-12-18] MEDS ORDERED: ACETAMINOPHEN 500 MG TAB ONE (18:44)
[2016-12-18] MEDS ORDERED: ACETAMINOPHEN 500 MG TAB PO ONE (19:03)
[2016-12-18 19:17] LABS: LACGHOST ORDER
[2016-12-18] MEDS ORDERED: PIPERACILLIN/TAZO 3.375 GM/DEX 50 ML IV ONE (19:27)
[2016-12-18] MEDS ORDERED: ONDANSETRON DISINTEGRATING 4 MG TAB PO PRN (20:50)
[2016-12-18] MEDS ORDERED: ONDANSETRON 4 MG/2 ML VIAL IVP PRN (20:50)
[2016-12-18] MEDS ORDERED: oxyCODONE IR 5 MG TAB PO PRN (20:50)
[2016-12-18] MEDS ORDERED: ACETAMINOPHEN 325 MG TAB PO PRN (20:50)
[2016-12-18] MEDS ORDERED: NS 2,800 ML IV ONE (20:57)
[2016-12-18] MEDS ORDERED: NS 1,000 ML IV SCH (21:00)
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
--- NOTE | 2016-12-18 21:57 | CPEKG ---
Heart Rate: 99 RR Interval: 606 P-R Interval: 184 QRSD Interval: 74 QT Interval: 392 QTC Interval: 504 P Marble: 48 QRS Marble: 15 T Wave Marble: 67 EKG Severity - ABNORMAL ECG - EKG Impression: SINUS RHYTHM EKG Impression: BORDERLINE INFERIOR Q WAVES EKG Impression: PROLONGED QT INTERVAL Electronically Signed By: Omkar Sandoval 18-Dec-2016 23:07:18
[2016-12-18 22:02] LABS: WBC, SYNOVIAL FLUID 83122 /mm3 (0-150)
[2016-12-18] MEDS: VANCOMYCIN 1.25 GM in D5W 250 ML IV SCH (23:32)
[2016-12-19] MEDS: predniSONE 20 MG TAB PO SCH ×2 (01:24→08:21)
[2016-12-19] MEDS: PIPERACILLIN/TAZO 3.375 GM/DEX 50 ML IV SCH ×4 (01:28→20:19)
[2016-12-19 04:26] LABS: COLOR YELLOW; LEUKOCYTE ESTERASE,URINE NEGATIVE (NEGATIVE); NITRITE,URINE NEGATIVE (NEGATIVE)
[2016-12-19 05:46] LABS: % IMMATURE GRANULYOCYTES 0.6 % (0.0-1.1); ABSOLUTE IMMATURE GRANULOCYTES 0.03 10^3/uL (0.00-0.10); ADD DIFF? NO; ADD MORPH? NO; ADD SCAN? NO; ATYPICAL LYMPHOCYTE FLAG 0 (0-99); FRAGMENT RBC FLAG 0 (0-99); HEMATOCRIT 24.4 % (40.0-51.0); HEMOGLOBIN 8.3 g/dL (13.7-17.5); LEFT SHIFT FLG 30 (0-99); LIPEMIA HEMOLYSIS FLAG 90 (0-99); MEAN CELL HEMOGLOBIN 28.9 pg (27.9-34.1); MEAN PLATELET VOLUME 9.1 fL (8.7-11.7); PLATELET CLUMPS FLAG 10 (0-99); PLATELET COUNT 117 10^3/uL (150-400); RED BLOOD CELL COUNT 2.87 10^6/uL (4.40-6.38); RED CELL DISTRIBUTION WIDTH 15.9 % (11.5-15.2)
[2016-12-19 06:05] LABS: ALANINE AMINOTRANSFERASE 29 IU/L (21-72); ALKALINE PHOSPHATASE 85 IU/L (38-126); ANION GAP 7 mEq/L (8-16); ASPARTATE AMINOTRANSFERASE 26 IU/L (17-59); BILIRUBIN,TOTAL 1.5 mg/dL (0.1-1.4); CALCIUM 7.8 mg/dL (8.5-10.4); CARBON DIOXIDE 25 mEq/l (22-31); CHLORIDE 102 mEq/L (97-110); CREATININE 0.8 mg/dL (0.7-1.3); GLOMERULAR FILTRATION RATE > 60; GLUCOSE 151 mg/dL (70-100); POTASSIUM 4.4 mEq/L (3.5-5.2); SODIUM 134 mEq/L (134-144); TOTAL PROTEIN 5.8 g/dL (6.3-8.2)
[2016-12-19] MEDS: ATORVASTATIN CALCIUM 40 MG TAB PO SCH (08:21)
[2016-12-19] MEDS ORDERED: SCOPOLAMINE HYDROBROMIDE 1.5 MG PATCH TD PRN (08:56)
[2016-12-19] MEDS ORDERED: ENOXAPARIN 40 MG/0.4 ML SYR SC SCH (09:00)
[2016-12-19] MEDS: VANCOMYCIN 1.25 GM in D5W 250 ML IV SCH ×2 (11:40→23:29)
--- NOTE | 2016-12-19 12:04 | HOSPPROG ---
Hospitalist Progress Note Assessment/Plan: #Sepsis: mild fever at admit. Concern for left septic knee join. Does have port , blood cxs NGTD #Concern for left septic knee joint: synovial fluid with >80K. Cultures still pending. Currently on Vanc/Zozyn. Spoke with ADELA Nair with Dr. Cruz. Holding off surgery today. NPO at MT #SCC tongue: recently completed chemo and XRT #Anemia of chronic disease: transfused 1 unit RBC at last admission #Hypovolemic hyponatremia: resolved with IVFs #Tachycardia: resolved #Fever: UA and CXR negative. Blood cultures pending. Dose have a port #HLD: statin #Benign HTN: holding with acute infection #Diet: resume TFs, NPO at midnight #Disp: warrants inpt admission given acute sepsis, warrants IV abx Subjective: feeling better. Mild pain in left knee Objective: Vital Signs Temp Pulse Resp BP Pulse Ox 36.6 C 89 14 108/44 L 98 12/19/16 08:22 12/19/16 08:22 12/19/16 08:22 12/19/16 08:22 12/19/16 08:22 Microbiology 12/18/16 20:56 Gram Stain - Final Synovial Fluid - Aspirate Laboratory Results 12/19/16 05:35 12/19/16 05:35 12/18/16 12/19/16 12/20/16 05:59 05:59 05:59 Intake Total 3844 Output Total 350 Balance 3494 - Physical Exam Constitutional: no apparent distress Eyes: PERRL Ears, Nose, Mouth, Throat: moist mucous membranes, other (mild oral secretions) Cardiovascular: regular rate and rhythym Respiratory: no respiratory distress Gastrointestinal: normoactive bowel sounds, other (G-tube in place. +BS) Skin: other (left neck radiation hollis with mild sloughing) Musculoskeletal: other (left knee effusion, mild TTP. Limited ROM) Neurologic: AAOx3, CN II-XII Intact ICD10 Worksheet Patient Problems: Problems Problem Status Onset PEG tube malfunction Acute
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
[2016-12-20] MEDS: PIPERACILLIN/TAZO 3.375 GM/DEX 50 ML IV SCH ×2 (02:25→08:42)
[2016-12-20 03:05] LABS: HEMATOCRIT 23.2 % (40.0-51.0); HEMOGLOBIN 7.8 g/dL (13.7-17.5); MEAN CELL HEMOGLOBIN 28.9 pg (27.9-34.1); MEAN CELL HEMOGLOBIN CONCENTR. 33.6 g/dL (32.4-36.7); MEAN CELL VOLUME 85.9 fL (81.5-99.8); RED BLOOD CELL COUNT 2.7 10^6/uL (4.40-6.38); RED CELL DISTRIBUTION WIDTH 16.1 % (11.5-15.2)
[2016-12-20 03:23] LABS: ANION GAP 9 mEq/L (8-16); CALCIUM 8.2 mg/dL (8.5-10.4); CARBON DIOXIDE 23 mEq/l (22-31); CHLORIDE 104 mEq/L (97-110); CREATININE 0.8 mg/dL (0.7-1.3); GLOMERULAR FILTRATION RATE > 60; GLUCOSE 112 mg/dL (70-100); POTASSIUM 3.8 mEq/L (3.5-5.2); SODIUM 136 mEq/L (134-144)
[2016-12-20 07:30] VITALS: BP 96/45; PULSE 74; RESP 10; TEMP 97.9; O2SAT 98
[2016-12-20] MEDS: predniSONE 20 MG TAB PO SCH (08:42)
[2016-12-20] MEDS: ATORVASTATIN CALCIUM 40 MG TAB PO SCH (08:42)
[2016-12-20] MEDS: VANCOMYCIN 1.25 GM in D5W 250 ML IV SCH (11:00)
--- NOTE | 2016-12-20 12:30 | HOSPPROG ---
Hospitalist Progress Note Assessment/Plan: #Sepsis: resolved. Due to gout. Gram stain negative #Acute left knee gout flare: sxs much improved. 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 Blood cultures pending. Dose have a port #HLD: statin #Benign HTN: holding with acute infection #Diet: resume TFs #Disp: DC today Subjective: walking on leg today Objective: Vital Signs Temp Pulse Resp BP Pulse Ox 36.6 C 74 10 L 96/45 L 98 12/20/16 07:28 12/20/16 07:28 12/20/16 07:28 12/20/16 07:28 12/20/16 07:28 Microbiology 12/18/16 20:56 Gram Stain - Final Synovial Fluid - Aspirate Laboratory Results 12/20/16 02:35 12/20/16 02:35 12/19/16 12/20/16 12/21/16 05:59 05:59 05:59 Intake Total 3844 2200 Output Total 350 Balance 3494 2200 - Physical Exam Constitutional: no apparent distress Eyes: PERRL Ears, Nose, Mouth, Throat: moist mucous membranes Cardiovascular: regular rate and rhythym Respiratory: no respiratory distress Gastrointestinal: other (G-tube in place. Positive bowel sounds) Genitourinary: no bladder fullness Skin: other (left neck radiation hollis. No signs of infection) Musculoskeletal: full muscle strength, other (increased ROM of left knee. No warmth or redness over the joint) Neurologic: AAOx3 Psychiatric: interacting appropriately Lymph, Heme, Immunologic: no cervical LAD ICD10 Worksheet Patient Problems: Problems Problem Status Onset PEG tube malfunction Acute
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
--- NOTE | 2016-12-20 17:39 | SOAPPROG ---
SOAP Progress Note Assessment/Plan: E&M for Base of tongue cancer * Stage IV base of tongue cancer: completed chemo and xrt; slowly healing; will continue G-tube feeding until able to take adequate po. He has appointment with me in a couple of weeks. * Gout attack: possibly due to change in diet; agree with short course of steroids and will check uric acid when recovers Subjective: Left knee doing much better and going home today. Objective: Vital Signs Temp Pulse Resp BP Pulse Ox 36.6 C 74 10 L 96/45 L 98 12/20/16 07:28 12/20/16 07:28 12/20/16 07:28 12/20/16 07:28 12/20/16 07:28 Microbiology 12/18/16 20:56 Gram Stain - Final Synovial Fluid - Aspirate Laboratory Results 12/20/16 02:35 12/20/16 02:35 12/19/16 12/20/16 12/21/16 05:59 05:59 05:59 Intake Total 3844 2200 Output Total 350 Balance 3494 2200 Physical Exam - Physical Exam General Appearance: no apparent distress Extremities: other (ROM is much better) ICD10 Worksheet Patient Problems: Problems Problem Status Onset PEG tube malfunction Acute
== END 2016-12-20 15:17 | disposition home or self-care (01) | DRG 553 ==
LOC: F2W 22:29
PROVIDERS: ADMIT Student in an Organized Health Care Education/Training Program; ATTEND Student in an Organized Health Care Education/Training Program
PROC: 0S9D3ZX Drainage of Left Knee Joint, Percutaneous Approach, Diagnostic (ICD-10-PCS; principal; 2016-12-18)
DX: M10.9 Gout, unspecified (principal); A41.9 Sepsis, unspecified organism; I10 Essential (primary) hypertension; E78.5 Hyperlipidemia, unspecified; I25.10 Atherosclerotic heart disease of native coronary artery without angina pectoris; Z95.5 Presence of coronary angioplasty implant and graft; D64.9 Anemia, unspecified; Z85.810 Personal history of malignant neoplasm of tongue; Z92.3 Personal history of irradiation
CPT/HCPCS: 96365; 97161-GP; G8978-GP-CI; G8979-GP-CI; G8980-GP-CI; J1642; J1650; J2543; J3370

== ENCOUNTER → 2017-01-18 | Outpatient (CLI) | payer BC | PROVIDERS: ATTEND Radiology Radiation Oncology | DX: R13.12 Dysphagia, oropharyngeal phase (principal); Z85.818 Personal history of malignant neoplasm of other sites of lip, oral cavity, and pharynx | CPT/HCPCS: 92611-GN ==